=== PATIENT | female | born 1950 | race Caucasian/White ===

== ENCOUNTER 2016-05-25 18:20 | Emergency (ER) | payer OTHER ==
[2016-05-25 20:37] VITALS: BP 152/76
== END 2016-05-25 20:37 | disposition home or self-care (01) ==
LOC: ED 18:20
DX: R21 Rash and other nonspecific skin eruption (principal); I10 Essential (primary) hypertension; E11.9 Type 2 diabetes mellitus without complications; F32.9 Major depressive disorder, single episode, unspecified; Z79.84 Long term (current) use of oral hypoglycemic drugs; Z79.4 Long term (current) use of insulin; Z88.0 Allergy status to penicillin
CPT/HCPCS: Q0163